=== PATIENT | male | born 1995 | race African-American/Black ===

== ENCOUNTER 2017-05-13 18:49 | Emergency (ER) | payer OTHER ==
[~2017-05-13] VITALS: Ht 182.9 cm; Wt 77.2 kg
[2017-05-13] MEDS ORDERED: FLEXERIL10 MG PO (22:39)
[2017-05-13] MEDS ORDERED: MOTRIN600 MG PO (22:39)
[2017-05-14 01:03] VITALS: BP 116/74
== END 2017-05-14 01:05 | disposition home or self-care (01) ==
LOC: RME 18:49 → EME 18:49 → RME 05-14 01:05
DX: M54.2 Cervicalgia (principal); M54.6 Pain in thoracic spine; V49.40XA Driver injured in collision with unspecified motor vehicles in traffic accident, initial encounter; F17.200 Nicotine dependence, unspecified, uncomplicated
CPT/HCPCS: 71020; 72040; 99281; 99283